=== PATIENT | female | born 1990 | race Caucasian/White ===

== ENCOUNTER 2022-10-14 13:41 | Emergency (ER) | payer OTHER, SELFPAY ==
[2022-10-14 14:15] VITALS: BP 139/87; PULSE 126; RESP 16; TEMP 36.1; O2SAT 100; BMI 31.3
--- NOTE | 2022-10-14 14:21 | ED_ITS ---
HPI - General Adult General Chief complaint: Dental/Oral <HOLGER Carranza - Last Filed: 10/14/22 19:41> Stated complaint: dental issue <HOLGER Carranza - Last Filed: 10/14/22 19:41> Time Seen by Provider: 10/14/22 15:17 <HOLGER Carranza - Last Filed: 10/14/22 19:41> Source: patient <HOLGER Sherman - Last Filed: 10/14/22 16:28> Mode of arrival: ambulatory <HOLGER Sherman - Last Filed: 10/14/22 16:28> Limitations: no limitations <HOLGER Sherman Last Filed: 10/14/22 16:28> History of Present Illness HPI narrative: Patient is a 32 year old assigned female at with a history of poor dentition presenting to the emergency department today with left sided facial swelling. Patient states that since yesterday her left lower jaw has been swollen. Patient states that she knows she has bad teeth and needs to get into a dentist who can refer her to an oral surgeon. Patient denies any dizziness, lightheadedness, abdominal pain, nausea, vomiting, fever, chills, blurry vision, double vision, loss of vision, chest pain, difficulty breathing, shortness of breath, back pain, night sweats, pain with urination, increased urinary frequency, increased urinary urgency, blood in her urine or stool, syncope or a near syncopal episode, recent trauma or falls, bowel incontinence, bladder incontinence, bowel retention, bladder retention, or any other complaints at this time. <HOLGER Sherman - Last Filed: 10/14/22 16:28> Onset (ago): day(s) (1) <HOLGER Sherman - Last Filed: 10/14/22 16:28> Location: mouth <HOLGER Sherman Last Filed: 10/14/22 16:28> Radiation: non-radiation <HOLGER Sherman Last Filed: 10/14/22 16:28> Severity: mild <HOLGER Sherman Last Filed: 10/14/22 16:28> Severity scale (1-10): 3 <HOLGER Sherman Last Filed: 10/14/22 16:28> Relieving factors: none <HOLGER Sherman Last Filed: 10/14/22 16:28> Exacerbating factors: none <HOLGER Sherman Last Filed: 10/14/22 16:28> Associated symptoms: denies other symptoms <HOLGER Sherman - Last Filed: 10/14/22 16:28> Treatments prior to arrival: none <HOLGER Sherman Last Filed: 10/14/22 16:28> Related Data Home medications: Previous Rx's Medication Instructions Recorded clindamycin HCl 300 mg capsule 300 mg PO TID 7 days #21 caps 10/14/22 ibuprofen 800 mg tablet 800 mg PO Q8H PRN pain #20 tabs 10/14/22 <HOLGER Carranza - Last Filed: 10/14/22 19:41> Allergies/adverse reactions: Allergies Allergy/AdvReac Type Severity Reaction Status Date / Time Penicillins Allergy Unknown Verified 10/14/22 14:15 sulfamethoxazole Allergy Unknown Verified 10/14/22 14:15 [From Bactrim] trimethoprim [From Bactrim] Allergy Unknown Verified 10/14/22 14:15 <HOLGER Carranza - Last Filed: 10/14/22 19:41> Review of Systems Constitutional: Constitutional: Reports no additional constitutional complaints, Denies chills, Denies fever(s) and Denies night sweats <HOLGER Sherman - Last Filed: 10/14/22 16:28> Eyes: Eyes: Reports no additional eye complaints, Denies blurry vision, Denies change in vision, Denies diplopia, Denies eye discharge, Denies loss of vision and Denies eye pain <HOLGER Sherman Last Filed: 10/14/22 16:28> ENT: Denies dizziness <HOLGER Sherman Last Filed: 10/14/22 16:28> Comments: left sided facial swelling <HOLGER Sherman Last Filed: 10/14/22 16:28> Cardiovascular: Cardiovascular: Reports no additional cardiovascular complaints, Denies chest pain, Denies lightheadedness, Denies Loss of Consciousness and Denies dyspnea <HOLGER Sherman Last Filed: 10/14/22 16:28> Respiratory: Respiratory: Reports no additional respiratory complaints and Denies dyspnea <HOLGER Sherman - Last Filed: 10/14/22 16:28> Gastrointestinal: Gastrointestinal: Reports no additional gastrointestinal complaints, Denies abdominal pain, Denies melena, Denies hematochezia, Denies change in bowel habits and Denies change in stool character <HOLGER Sherman - Last Filed: 10/14/22 16:28> Genitourinary: Genitourinary: Denies hematuria, Denies urinary frequency, Denies dysuria, Denies urinary incontinence, Denies urinary hesitancy and Denies urinary urgency <HOLGER Sherman - Last Filed: 10/14/22 16:28> Musculoskeletal: Musculoskeletal: Reports no additional musculoskeletal complaints, Denies numbness and Denies tingling <HOLGER Sherman - Last Filed: 10/14/22 16:28> Neurologic: Denies dizziness, Denies loss of vision, Denies numbness and Denies tingling <HOLGER Sherman - Last Filed: 10/14/22 16:28> Psychiatric: Psychiatric: Reports no additional psychiatric complaints <HOLGER Sherman - Last Filed: 10/14/22 16:28> Endocrine: Endocrine: Reports no additional endocrine complaints <HOLGER Sherman - Last Filed: 10/14/22 16:28> Hematologic/Lymphatic: Hematologic/Lymphatic: Reports no additional hematologic/lymphatic complaints <HOLGER Sherman - Last Filed: 10/14/22 16:28> Allergic/Immunologic: Allergic/Immunologic: Reports no additional allergic/immunologic complaints <HOLGER Sherman - Last Filed: 10/14/22 16:28> [facility] Past Medical History Attestation statement: The following information was validated with the patient. <HOLGER Sherman - Last Filed: 10/14/22 16:28> Source: old records reviewed and nursing notes reviewed <HOLGER Sherman - Last Filed: 10/14/22 16:28> Social History Social History: Social History Advance Directives: No Advance Directives Information Provided: No <HOLGER Carranza - Last Filed: 10/14/22 19:41> Physical Exam ED Vital Signs: Vital Signs - 24 hr 10/14/22 14:15 Temperature 97.0 F Pulse Rate 126 H Respiratory Rate 16 Blood Pressure 139/87 Pulse Oximetry 100 Oxygen Delivery Method Room Air BMI result Body Mass Index 31.3 <HOLGER Carranza - Last Filed: 10/14/22 19:41> Vital Signs - 24 hr 10/14/22 14:15 Temperature 97.0 F Pulse Rate 126 H Respiratory Rate 16 Blood Pressure 139/87 Pulse Oximetry 100 Oxygen Delivery Method Room Air BMI result Body Mass Index 31.3 <HOLGER Sherman - Last Filed: 10/14/22 16:28> Const General: cooperative, no acute distress, alert and awake <HOLGER Sherman - Last Filed: 10/14/22 16:28> Nutritional Appearance: well nourished <HOLGER Sherman - Last Filed: 10/14/22 16:28> Orientation/consciousness: patient oriented x3 <HOLGER Sherman - Last Filed: 10/14/22 16:28> Limitations: no limitations <HOLGER Sherman - Last Filed: 10/14/22 16:28> HENMT Head: Yes atraumatic <HOLGER Sherman - Last Filed: 10/14/22 16:28> Ears: hearing grossly normal bilaterally and external ears normal <HOLGER Sherman - Last Filed: 10/14/22 16:28> General nose exam: Normal external nose present, no nasal discharge noted and no epistaxis <HOLGER Sherman Last Filed: 10/14/22 16:28> Face and sinus: No abrasion, No laceration and Yes other (left sided facial swelling, no definitive abscess / fluctuance felt) <HOLGER Sherman - Last Filed: 10/14/22 16:28> Mouth: Normal oral and palatal mucosa present, no drooling and no muffled voice <HOLGER Sherman Last Filed: 10/14/22 16:28> Eyes General: appearance normal, both eyes and all related structures <HOLGER Sherman Last Filed: 10/14/22 16:28> Periorbital: periorbital findings normal <HOLGER Sherman - Last Filed: 10/14/22 16:28> Eyelids: Yes eyelids normal <Dariana Navarro PA - Last Filed: 10/14/22 16:28> Conjunctivae: conjunctivae normal <Dariana Navarro PA - Last Filed: 10/14/22 16:28> Pupils: Equal, round and reactive pupils present <Dariana Navarro PA - Last Filed: 10/14/22 16:28> EOM: EOMs intact bilaterally <Dariana Navarro PA - Last Filed: 10/14/22 16:28> Neck Neck: Yes normal visual inspection, Yes full ROM and Yes no lymphadenopathy <Dariana Navarro PA - Last Filed: 10/14/22 16:28> Chest Chest palpation & inspection: normal inspection of the chest <Dariana Navarro PA - Last Filed: 10/14/22 16:28> Resp Effort & Inspection: normal respiratory effort and able to speak in complete sentences <Dariana Navarro PA - Last Filed: 10/14/22 16:28> Auscultation: clear to auscultation bilaterally <Dariana Navarro PA - Last Filed: 10/14/22 16:28> Cardio Rate: regular rate <Dariana Navarro PA - Last Filed: 10/14/22 16:28> Rhythm: regular rhythm <Dariana Navarro PA - Last Filed: 10/14/22 16:28> GI Inspection: Yes normal to inspection <Dariana Navarro PA - Last Filed: 10/14/22 16 :28> Palpation (GI): Soft to palpation, not firm, nontender, no guarding and not rigid <Dariana Navarro PA - Last Filed: 10/14/22 16:28> Neuro General: patient oriented x3 and moves all extremities <Dariana Navarro PA - Last Filed: 10/14/22 16:28> Cranial nerves: Yes Equal, round and reactive pupils present <Dariana Navarro PA - Last Filed: 10/14/22 16:28> Cognition (Neuro): normal cognition <Dariana Navarro PA - Last Filed: 10/14/22 16:28> Motor exam (neuro): 5/5 motor strength present throughout <Dariana Navarro PA - Last Filed: 10/14/22 16:28> Sensory Exam: Normal double simultaneous stimulation for sensation <HOLGER Sherman - Last Filed: 10/14/22 16:28> Coordination: [id number]-[id number] test normal <HOLGER Sherman - Last Filed: 10/14/22 16:28> Extrem General: Yes normal to inspection, Yes full ROM and Yes capillary refill normal <HOLGER Sherman - Last Filed: 10/14/22 16:28> Psych Appearance: grossly normal <HOLGER Sherman - Last Filed: 10/14/22 16:28> Mental Status: mental status grossly normal <HOLGER Sherman - Last Filed: 10/14/22 16:28> Affect: normal affect <HOLGER Sherman - Last Filed: 10/14/22 16:28> Attitude: cooperative <HOLGER Sherman - Last Filed: 10/14/22 16:28> Thought process: Normal thought process present <HOLGER Sherman - Last Filed: 10/14/22 16:28> Thought content: Normal thought content present <HOLGER Sherman - Last Filed: 10/14/22 16:28> Insight: Good insight present (Psych) <HOLGER Sherman - Last Filed: 10/14/22 16:28> Course Course Course Narrative: RME: 32 yold female presents to the ED for left facial swelling since last night. patient states poor dental teeth that broke. Physical exam shows left sumbandibular swelling and oral exan shows pockets of pus in dental sockets ( dental abscess). tooth decay and cracked tooth. patient speaking in full sentence and negative for drooling. Basic labs ordered in case CT neck ordered. <HOLGER Carranza - Last Filed: 10/14/22 19:41> Medical Decision Making Medical Decision Making MDM Narrative: Patient is a 32 year old assigned female at with a history of poor dentition presenting to the emergency department today with left sided facial swelling. Patient's physical exam showed mild swelling to the left side of the face but no area of fluctuance or discrete abscess. I explained my physical exam findings as well as all test results to the patient. I answered all questions asked by the patient. I stressed the importance of the patient taking her medication as prescribed. I stressed the importance of the patient following up with her primary care provider and a dentist. I stressed the importance of the patient returning to the emergency department immediately if her symptoms were to worsen or if she were to develop any dizziness, shortness of breath, difficulty breathing, chest pain, blurry vision, loss of vision, nausea, vomiting, abdominal pain, fever, chills, back pain, or any other complaints. Patient verbalized agreement and understanding with this treatment plan and discharge. <HOLGER Sherman - Last Filed: 10/14/22 16:28> Differential Diagnosis Differential Diagnoses: The differential diagnosis associated with the presentation includes <HOLGER Sherman Last Filed: 10/14/22 16:28> left sided facial cellulitis <HOLGER Sherman Last Filed: 10/14/22 16:28> Discharge Plan Discharge Clinical Impression: Cellulitis of face <HOLGER Carranza Last Filed: 10/14/22 19:41> Patient Disposition: Home, Self-Care <HOLGER Carranza Last Filed: 10/14/22 19:41> Instructions: Cellulitis (ED) <HOLGER Carranza Last Filed: 10/14/22 19:41> Additional Instructions: Follow up with your primary care provider. Return to the emergency department immediately if your symptoms worsen or if you develop any dizziness, shortness of breath, difficulty breathing, chest pain, blurry vision, loss of vision, nausea, vomiting, abdominal pain, fever, chills, back pain, or any other complaints. Call or visit any of the clinics below to establish with a dentist: [facility] [address] [place] [address] [facility] [address] [facility], [address] Minor Vargas [address] [place] [id number] [facility] [address] [place] [id number] [facility] [address] [place] [address] [place] [address] [place] [address] <HOLGER Carranza - Last Filed: 10/14/22 19:41> Prescriptions: New clindamycin HCl 300 mg capsule 300 mg PO TID 7 Days Qty: 21 0RF ibuprofen 800 mg tablet 800 mg PO Q8H PRN (Reason: pain) Qty: 20 0RF <HOLGER Carranza - Last Filed: 10/14/22 19:41> Referrals: [facility] [Provider Group] (Call to establish and follow up with a primary care provider. If you already have a primary care provider, please follow up with them. ) [facility], [facility] [Provider Group] (Call to establish and follow up with a primary care provider. If you already have a primary care provider, please follow up with them. ) [facility],Sasha [Provider Group] (Call to establish and follow up with a primary care provider. If you already have a primary care provider, please follow up with them. ) <HOLGER Carranza - Last Filed: 10/14/22 19:41> Interventions: ED Discharge Assessment Last Done: 10/14/22 15:40 <HOLGER Carranza - Last Filed: 10/14/22 19:41> Discharge Date/Time: 10/14/22 15:40 <HOLGER Carranza - Last Filed: 10/14/22 19:41> Print Language: Burmese <HOLGER Carranza - Last Filed: 10/14/22 19:41>
== END 2022-10-14 15:40 | disposition home or self-care (01) ==
PROVIDERS: Emergency Provider Emergency Medicine
DX: L03.211 Cellulitis of face (principal)
CPT/HCPCS: 99282; 99283

== ENCOUNTER 2023-06-20 13:19 | Emergency (ER) | payer OTHER, SELFPAY ==
[2023-06-20 13:32] VITALS: BP 121/78; PULSE 110; RESP 18; TEMP 36.1; O2SAT 98; BMI 41.9
--- NOTE | 2023-06-20 13:33 | PC.NURSE ---
eval and dc by pit
--- NOTE | 2023-06-20 13:35 | ED.EYEPROB ---
HPI - Eye Problem General Chief complaint: Eye Problems Stated complaint: Stye R Eye Time Seen by Provider: 06/20/23 13:34 Source: patient Mode of arrival: ambulatory Limitations: no limitations History of Present Illness HPI Narrative: This is a 33-year-old female who presents to the emergency department with right eye redness, discharge from the right eye for the past few days, patient reports she had a stye to her right lower lid, she has been applying warm compresses to the area she states ?it popped ?, since then redness and itchiness with discharge the right eye. Denies headache, vision changes, dizziness, nausea, vomiting, abdominal pain, fevers, chills, chest pain and shortness of breath. Patient does not wear contact lenses. No trauma to the eye. Related Data Previous Rx's Medication Instructions Recorded clindamycin HCl 300 mg capsule 300 mg PO TID 7 days #21 caps 10/14/22 ibuprofen 800 mg tablet 800 mg PO Q8H PRN pain #20 tabs 10/14/22 erythromycin 5 mg/gram (0.5 %) eye 1 appl ophthalmic (eye) TID 5 days 06/20/23 ointment #3.5 grams Allergies Allergy/AdvReac Type Severity Reaction Status Date / Time Penicillins Allergy Unknown Verified 10/14/22 14:15 sulfamethoxazole Allergy Unknown Verified 10/14/22 14:15 [From Bactrim] trimethoprim [From Bactrim] Allergy Unknown Verified 10/14/22 14:15 Review of Systems Review of Systems: Constitutional : No Weight loss, No Fever, No Chills, No Fatigue, No Malaise ENT/Mouth : No sore throat, No Rhinorrhea Eyes: No Eye Pain, No Swelling, + Redness Cardiovascular : No Chest Pain, No SOB, No Dyspnea on Exertion, No Orthopnea, No Edema, No Palpitations Respiratory : No Cough, No Sputum, No Wheezing Gastrointestinal : No Nausea, No Vomiting, No Diarrhea, No Constipation, No abdominal Pain, No Hematochezia, No Melena Genitourinary : No Dysuria, No Urinary Frequency, No Hematuria, Musculoskeletal : No joint pain, No Myalgias, No Joint Swelling Skin : No Skin Lesions, No rash Neuro : No Weakness, No Numbness, No Dizziness, No Headache Psych : No Anxiety/Panic, No Depression All other systems reviewed and are negative Yes all other systems are reviewed and are negative [facility] Past Medical History Attestation statement: The following information was validated with the patient. Source: old records reviewed and nursing notes reviewed Physical Exam Vital Signs: Vital Signs: Last Vital Signs Temp 97.0 F 06/20/23 13:32 Pulse 110 H 06/20/23 13:32 Resp 18 06/20/23 13:32 BP 121/78 06/20/23 13:32 Pulse Ox 98 06/20/23 13:32 O2 Del Method Room Air 06/20/23 13:32 BMI result Body Mass Index 41.9 vss Appearance: Alert.? Oriented X3.? No acute distress.? Head: Normocephalic, atraumatic, no step-offs or deformities Eyes: Pupils equal, round and reactive to light.? + right lower eyelid with internal hordeolum, right sided conjunctivae with injection, extraocular movements intact and pain-free bilaterally. Normal left eye. No discharge noted on my exam. ENT: Pharynx normal.? Neck: Normal inspection.? Neck supple.? CVS: Normal heart rate and rhythm.? Pulses normal.? Respiratory: No respiratory distress.? Breath sounds normal.? Abdomen: Soft and nontender.? Skin: Skin warm and dry.? Normal skin color.? Normal skin turgor.? Extremities: No lower extremity edema.? No calf ttp. 5/5 strength to bilateral upper and lower extremities Neuro: Oriented X 3.? No motor deficit.? No sensory deficit. CN 2-12 intact Medical Decision Making Medical Decision Making [facility] Narrative: 1336 33-year-old female presents with discomfort and redness to right eye. Not a contact lens wear Physical exam significant Eyes: Pupils equal, round and reactive to light.? + right lower eyelid with internal hordeolum, right sided conjunctivae with injection, extraocular movements intact and pain-free bilaterally. Normal left eye. No discharge noted on my exam. This is likely internal hordeolum with adjuvant conjunctivitis. Unlikely orbital or periorbital cellulitis, no signs of acute angle glaucoma, wet macular degeneration, globe rupture, corneal abrasion. Plan at this time erythromycin ointment discharge from the waiting room. There would not be any differences in care of patient was seen in the room. Patient able to read signs in the room without difficulty. Educated patient on diagnosis and treatment plan, answered all question, patient verbalizes understanding. At this time patient will be discharged home, advised to return with new or worsening symptoms. Educated on worrisome signs and symptoms and when to return. At this time I feel comfortable discharge home. Differential Diagnosis Differential Diagnoses: The differential diagnosis associated with the presentation includes This is likely internal hordeolum with adjuvant conjunctivitis. Unlikely orbital or periorbital cellulitis, no signs of acute angle glaucoma, wet macular degeneration, globe rupture, corneal abrasion. Admission/Observation Consideration of admission/observation: Escalation of care including admission/observation considered No indication Discharge Plan Discharge Clinical Impression: Hordeolum, Acute conjunctivitis of right eye Patient Disposition: Home, Self-Care Instructions: Neftali (ED) Additional Instructions: Take your medications as prescribed. If you were prescribed antibiotics today, it is important that you take your medication to their entirety, do not skip any doses, do not finish them early. Follow-up with your primary care provider this week. Return to the emergency department with new or worsening symptoms. Such as fevers, chills, chest pain, shortness of breath, nausea, vomiting, dizziness, headache, vision changes, lethargy In case of emergency call 911 Apply warm compress to the area. Prescriptions: New erythromycin 5 mg/gram (0.5 %) ointment 1 appl ophthalmic (eye) TID 5 Days Qty: 3.5 0RF No Action clindamycin HCl 300 mg capsule 300 mg PO TID 7 Days Qty: 21 0RF ibuprofen 800 mg tablet 800 mg PO Q8H PRN (Reason: pain) Qty: 20 0RF Referrals: Physician,None [Primary Care Provider] - 2 days Stand Alone Forms: Work/School Release Interventions: ED Discharge Assessment Last Done: 06/20/23 13:33
== END 2023-06-20 13:38 | disposition home or self-care (01) ==
PROVIDERS: Emergency Provider Emergency Medicine
DX: H00.012 Hordeolum externum right lower eyelid (principal); H10.31 Unspecified acute conjunctivitis, right eye
CPT/HCPCS: 99282; 99283